=== PATIENT | female | born 1960 | race Asian ===

== ENCOUNTER 2017-02-25 05:37 | Day surgery (SDC) | payer BC ==
--- NOTE | ~2017-02-25 | OP ---
Record Of Operation [facility] [address] [facility] [place]. [address] NAME: RAMIRO VO : 58 STATUS : REG [facility]#: [id number] AGE: 56 ADM/REG DATE : 02/25/17 MR#: [id number] REPORT SERV DATE: 02/25/17 DICTATED BY: KI PACHECO DATE: 02/25/17 REPORT STATUS : Draft TRANSCRIBED BY: MODL DATE: 02/25/17 DATE OF PROCEDURE: 02/25/2017 PREOPERATIVE DIAGNOSIS: Recurrent metastatic colon carcinoma. POSTOPERATIVE DIAGNOSIS: Recurrent metastatic colon carcinoma. OPERATION PERFORMED: Right internal jugular Port-A-Cath placement under ultrasound and fluoroscopic guidance. SURGEON: Ki Pacheco M.D. ANESTHESIA: MAC plus local. ESTIMATED BLOOD LOSS: Less than 10 mL. IV FLUIDS: Adequate. DESCRIPTION OF OPERATION: After appropriate sedation, the patient was prepped and draped in proper sterile fashion. Ultrasound probe was placed over the right neck. She had a patent and pliable right internal jugular vein. Right neck and right chest wall were infiltrated with local anesthesia. Right internal jugular vein was cannulated using a 14-gauge needle under ultrasound guidance. A guidewire was fed under fluoroscopic guidance just above the right heart. A transverse incision was made in the right chest wall. Subcutaneous tissues were incised down to pectoralis fascia and pocket was bluntly dissected. Introducer sheath was placed over the guidewire. A catheter was then fed through the introducer sheath with the tip being just above the right heart. The catheter was tunneled subcutaneously to the port pocket and secured to the port, port secured to the chest wall using 3-0 Vicryl suture. The port was flushed and aspirated easily. The skin was closed using interrupted 3-0 Vicryl suture. Steri-Strips and dressings were then placed. The patient was taken to Recovery Room in satisfactory condition. MARIBEL/ZEHRA Ki Pacheco M.D. / [id number] CC: Ki Pacheco M.D.
--- NOTE | ~2017-02-25 | OP ---
Record Of Operation [facility] [address] [facility] [place]. [address] NAME: RAMIRO VO : 58 STATUS : REG [facility]#: [id number] AGE: 56 ADM/REG DATE : 02/25/17 MR#: [id number] REPORT SERV DATE: 02/27/17 DICTATED BY: KI PACHECO DATE: 02/27/17 REPORT STATUS : Draft TRANSCRIBED BY: MODL DATE: 02/27/17 DATE OF PROCEDURE: 02/25/2017 PREOPERATIVE DIAGNOSIS: Metastatic colon cancer. POSTOPERATIVE DIAGNOSIS: Metastatic colon cancer. OPERATION PERFORMED: Right internal jugular Port-A-Cath placement under ultrasound and fluoroscopic guidance. SURGEON: Ki Pcaheco M.D. ANESTHESIA: General. ESTIMATED BLOOD LOSS: Less than 10 mL. IV FLUIDS: Adequate. DESCRIPTION OF OPERATION: After appropriate sedation, the patient was prepped and draped in proper sterile fashion. Ultrasound probe was placed over the right neck. She had a patent and pliable right internal jugular vein. Right chest wall and right neck were infiltrated with local anesthesia. Right internal jugular vein was cannulated using a 14-gauge needle under ultrasound guidance. A guidewire was then fed under fluoroscopic guidance just above the right heart. A transverse incision was made over the right chest wall. Subcu tissues were incised down to pectoralis fascia and a pocket was bluntly dissected. Introducer sheath was placed over the guidewire. The catheter was then fed through the introducer sheath with the tip being just above the right heart. The catheter was then tunneled subcutaneously to the port pocket, and secured to the port. The port was secured to the chest wall using 3-0 Vicryl suture. The port was flushed and aspirated, flushed and aspirated easily. The skin was closed using interrupted 3-0 Vicryl sutures. Steri-Strips and dressings were then placed. The patient was taken to the recovery room in satisfactory condition. MARIBEL/ZEHRA Ki Pacheco M.D. / [id number] CC: Ki Pacheco M.D.
[~2017-02-25 05:37] MED LIST: ADVIL PO; MULTIPLE VIT PO; MULTIVIT/MIN PO
[2017-02-25 06:36] LABS: HEMATOCRIT 42.2 % (36.0-48.0); HEMOGLOBIN 14.5 g/dL (12.0-16.0)
== END 2017-02-25 23:59 | disposition home or self-care (01) ==
LOC: SDC 05:37
PROVIDERS: Specialist
PROC: B513ZZA Fluoroscopy of Right Jugular Veins, Guidance (ICD-10-PCS; 2017-02-25)
PROC: 05HM33Z Insertion of Infusion Device into Right Internal Jugular Vein, Percutaneous Approach (ICD-10-PCS; principal; 2017-02-25 07:00)
DX: C18.9 Malignant neoplasm of colon, unspecified (principal); Z78.0 Asymptomatic menopausal state; Z79.899 Other long term (current) drug therapy; F17.210 Nicotine dependence, cigarettes, uncomplicated
CPT/HCPCS: 71010; 76000; 85014; 85018; 93005; A9270-GY; C1788; J0690; J2405; J3010